=== PATIENT | female | born 1960 | race African-American/Black ===

== ENCOUNTER → 2020-05-27 | Outpatient (CLI) | payer BC, OTHER ==
[2020-05-27 10:46] LABS: CALCIUM 9.1 mg/dL (8.5-10.1); CREATININE 0.9 mg/dL (0.6-1.0); POTASSIUM 4.2 mmol/L (3.5-5.1)
== END ==
LOC: CAT 09:58
PROVIDERS: Nuclear Medicine Nuclear Cardiology; ATTEND Internal Medicine
DX: R07.9 Chest pain, unspecified (principal); R55 Syncope and collapse